=== PATIENT | male | born 1965 | race Caucasian/White ===

== ENCOUNTER 2021-08-26 15:34 | Outpatient (CLI) | payer BC ==
--- NOTE | 2021-08-26 18:50 | XRAY Report ---
PROCEDURE: Foot 3 View LT INDICATIONS: UNSPECIFIED INJURY OF FOOT TECHNIQUE: 3 views of the foot were acquired. COMPARISON: None FINDINGS: Bones: No fractures or dislocations. No suspicious bony lesions. Soft tissues: No tibiotalar joint effusion. Achilles tendon appears normal. Well-defined plantar a nd dorsal calcaneal enthesophytes are seen. IMPRESSION: Well-defined calcaneal enthesophytes. No left foot fracture or dislocation. No gross soft tissue abno rmality. Reviewed by: Sree Michelle MD on 08/26/2021 6:48 PM PDT Approved by: Sree Michelle MD on 08/26/2021 6:48 PM PDT Station ID: [id number]
== END 2021-08-26 15:35 | disposition home or self-care (01) ==
LOC: DI 15:34
PROVIDERS: ATTEND Nurse Practitioner
DX: M77.32 Calcaneal spur, left foot (principal)